=== PATIENT | female | born 1935 | race African-American/Black ===

== ENCOUNTER 2016-06-29 06:01 | Inpatient (IN) | payer MEDICARE, OTHER ==
[2016-06-26 14:39] LABS: BASOPHILS 0.2 %; BASOPHILS ABSOLUTE 0.01 10/3/uL (0.0-0.16); EOSINOPHILS 1.5 %; EOSINOPHILS ABSOLUTE 0.07 10/3/uL (0.0-0.53); HEMATOCRIT 29.8 % (36.0-48.0); HEMOGLOBIN 9.9 g/dL (12.0-16.0); IMMATURE GRANULOCYTES 1.7 %; IMMATURE GRANULOCYTES ABSOLUTE 0.08 10/3/uL (0.0-0.11); LYMPHOCYTES 28.7 %; LYMPHOCYTES ABSOLUTE 1.38 10/3/uL (0.67-4.30); MEAN CORPUS HGB CONC 33.2 g/dL (32.0-36.0); MEAN PLATELET VOLUME 9.8 fL (9.2-13.0); MONOCYTES 9.6 %; MONOCYTES ABSOLUTE 0.46 10/3/uL (0.21-1.20); NEUTROPHILS 58.3 %; NEUTROPHILS ABSOLUTE 2.81 10/3/uL (2.02-8.40); PLATELET COUNT 230 10/3/uL (150-400); RBC DISTRIBUTION WIDTH 17.4 % (12.0-16.0); RED CELL COUNT 3.54 10/6/uL (4.0-5.6); WHITE BLOOD CELLS 4.8 10/3/uL (4.5-10.5)
[2016-06-26 14:40] LABS: MANUAL DIFF NO %; MEAN CORPUSCULAR VOLUME 84.2 fL (80-100)
[2016-06-26 14:49] LABS: INTERNATIONAL NORMAL RATI 2.1 UNITS (-); PARTIAL THROMBO TIME 32.3 SEC (22.5-37.2); PROTIME (NOT ORD) 23.5 SEC (12.0-14.5)
[2016-06-26 14:52] LABS: CALCIUM, SERUM 8.6 MG/DL (8.5-10.4); CHLORIDE, SERUM 113 MMOL/L (96-112); CO2 (CARBON DIOXIDE) 25 MMOL/L (24-34); POTASSIUM, SERUM 3.8 MMOL/L (3.5-5.3); SODIUM, SERUM 147 MMOL/L (135-148)
[2016-06-26 14:53] LABS: BUN (BLOOD UREA NITROGEN) 15 MG/DL (6-23); CREATININE 1.75 MG/DL (0.55-1.02); GFR AFRICAN AMERICAN 32 ML/MIN (>=60); GFR NON AFRICAN AMERICAN 27 ML/MIN (>=60); GLUCOSE, SERUM 167 MG/DL (60-99)
--- NOTE | ~2016-06-29 | DS ---
Discharge Summary [facility] [address] [place]. 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 OPERATIVE PROCEDURE: Tracheostomy on 06/29/2016. 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 She has seen me in the office. I recommended tracheostomy tube years ago. She actually was referred to [facility] for a second opinion and they recommended tracheostomy tube; however, patient again has been functioning decently well until recent years and she actually even underwent a surgical procedure and was intubated and was successfully extubated following this. However, within the last few months, has had increasing dyspnea on exertion and difficulty catching her breath. The patient was felt to benefit from tracheostomy placement and was scheduled for such. HOSPITAL COURSE: The patient was admitted to the hospital following the uneventful surgical procedure which included microscopic direct laryngoscopy and tracheostomy tube placement on 06/29/2016. A #6 Shiley CFS tracheostomy tube was inserted at the time of surgery and the patient was taken to the intermediate care unit or the ICU step-down unit for further observation and airway monitoring. She spent 2 days in monitoring at this location, had uneventful stay with minimal secretions, and was transferred to the floor on Sunday evening. While on the floor, she again continued to have no problems. She was fairly weak and Physical Therapy consult was placed. Also consults were placed for home health care which would include nurses' visits and teaching. Physical therapy was suggested on an outpatient basis and this was ordered as well. On the morning of 07/03/2016, patient was having minimal secretions and was able to clear her own secretions with cough with suctioning. Her tracheostomy site appeared to be healing well. Stay sutures were not removed yet, but she was tolerating finger occlusion for speech purposes. A Passy-Justina valve had not been placed at the time of discharge. She was deemed stable for discharge and discharged to home. DISPOSITION: Home. DISCHARGE MEDICATIONS: Include resumption of all home medications with no additional medications at this point, orders for physical therapy and nursing instruction on tracheostomy care were placed and she was discharged to home. IKER/YAQUELIN Discharge Summary [facility] [id number] [place]. [address] NAME: BOOKER FRANKLIN : 39 STATUS : ADM IN [facility]#: [id number] AGE: 80 ADM/REG DATE : 06/29/16 MR#: [id number] REPORT SERV DATE: 07/04/16 DICTATED BY: RUSTY SINGLETON. DATE: 07/03/16 REPORT STATUS : Draft TRANSCRIBED BY: YAQUELIN DATE: 07/03/16 Rusty Singleton M.D. / [id number] CC: Rusty Singleton M.D.
--- NOTE | ~2016-06-29 | OP ---
Record Of Operation [facility] [address] [place]. [address] NAME: BOOKER FRANKLIN : 39 STATUS : ADM IN PAT#: [id number] AGE: 80 ADM/REG DATE : 06/29/16 MR#: [id number] REPORT SERV DATE: 06/29/16 DICTATED BY: RUSTY SINGLETON DATE: 06/29/16 REPORT STATUS : Draft TRANSCRIBED BY: MODL DATE: 06/29/16 DATE OF PROCEDURE: 06/29/2016 PREOPERATIVE DIAGNOSES: Bilateral vocal fold palsy, stridor, and upper airway obstruction. POSTOPERATIVE DIAGNOSES: Bilateral vocal fold palsy, stridor, and upper airway obstruction. OPERATIVE PROCEDURE PERFORMED: 1. Microscopic direct laryngoscopy. 2. Tracheostomy. INDICATIONS AND SIGNIFICANT HISTORY: The patient is a 80-year-old female who for over 10 years now has had bilateral true vocal fold palsy. She has done well and even undergone intubation previously and was able to be successfully extubated; however, over the last several months, she has been increasingly dyspneic with increasing stridor on exertion. She was then seen by myself multiple times as well as had been evaluated at [facility] for other procedures and tracheostomy was recommended. OPERATIVE PROCEDURE AND FINDINGS: After informed consent was obtained, the patient was brought to the operating room and placed on the operating table in supine position, at which point, general endotracheal anesthesia was induced by Anesthesia Service and the Dedo laryngoscope was inserted into the oral cavity through guarded alveolar ridge. Lateral pharyngeal wall, posterior pharyngeal wall, supraglottis, epiglottis, and glottis were all inspected and no lesions, masses, or obstructions were noted. Previous endoscopy in the office setting while awake demonstrated paramedian bilateral true vocal folds. Tracheostomy was then performed. The skin of the neck was prepped and draped in standard sterile fashion. A vertical incision was made in the midline of the neck and was carried down to the level of the trachea. There was heavy scarring of the surface of the trachea. An inferiorly based Shakila-type flap was created and sewn into place in the inferior aspect of the stoma using a #15 blade scalpel and 4-0 silk suture. Next, her oral endotracheal tube was withdrawn and a 6-0 Shiley cuffless non-fenestrated tracheostomy tube was inserted into the lumen of the trachea. The circuit was confirmed with return of tidal volume. The patient then had her tracheostomy tube secured at four points. The patient was turned back toward anesthesia, aroused from anesthesia, and taken to the postanesthesia care unit in satisfactory condition. COMPLICATIONS: None. ESTIMATED BLOOD LOSS: Less than 10 mL. IV FLUIDS: Per Anesthesia. DLCuca/YAQUELIN Record Of [address] [address] NAME: BOOKER FRANKLIN : 39 STATUS : ADM IN [facility]#: [id number] AGE: 80 ADM/REG DATE : 06/29/16 MR#: [id number] REPORT SERV DATE: 06/29/16 DICTATED BY: RUSTY SINGLETON DATE: 06/29/16 REPORT STATUS : Draft TRANSCRIBED BY: YAQUELIN DATE: 06/29/16 Rusty Singleton M.D. / [id number] CC: Yoon Meneses M.D.
[~2016-06-29 06:01] MED LIST: ALBUTEROL5 INH; ALLEGRA180 PO; AMARYL1 MG PO; AMITIZA24 PO; AVANDARYL1 TA3 PO; BREO ELLIPTA 21 EACH INH; C5 PO; CIP5 PO; COZAAR100 MG PO; DSS PO; DULERA 200 MCG/13 GM INH; ESTRACE VAG0.1 MG/GM V; FERROUS SULF325 M1 PO; HCTZ50B PO; IBUDONE1 TA1 OR; JANUVIA25 MG PO; JANUVIA50 PO; KAPIDEX30 MG PO; KDUR10 PO; KLOR-CON 1010 MEQ PO; LEVOTHYROXIN100 MCG PO; LIPITOR20 PO; MACRO50B PO; MCZ25 PO; MUCINEX600 MG PO; NEUR100 PO; NORCO1 TA1 PO; ONGLYZA2.5 MG PO; PRILO PO; PROAIR HFA INH; PROLOP100 PO; PROVENTSOL INH; ROCALTROL 0.0.25 MCG PO; ROCALTROL0.25 MCG PO; SINGULAIR1 PO; SYN1 PO; THERGRANM PO; VYTORIN 10/20 T1 TAB PO; WELLXL150 PO; X5 PO; ZOL50 PO; ZYRTEC ALLGY10 MG PO
[2016-06-29 06:47] LABS: INTERNATIONAL NORMAL RATI 1.4 UNITS (-)
[2016-06-29 06:50] LABS: PROTIME (NOT ORD) 17.2 SEC (12.0-14.5)
[2016-06-30 04:46] LABS: INTERNATIONAL NORMAL RATI 1.3 UNITS (-); PROTIME (NOT ORD) 16.5 SEC (12.0-14.5)
[2016-06-30 06:05] LABS: BUN (BLOOD UREA NITROGEN) 22 MG/DL (6-23); CALCIUM, SERUM 8.2 MG/DL (8.5-10.4); CHLORIDE, SERUM 111 MMOL/L (96-112); CO2 (CARBON DIOXIDE) 26 MMOL/L (24-34); CREATININE 1.47 MG/DL (0.55-1.02); GFR AFRICAN AMERICAN 39 ML/MIN (>=60); GFR NON AFRICAN AMERICAN 34 ML/MIN (>=60); GLUCOSE, SERUM 86 MG/DL (60-99); PHOSPHORUS, SERUM 3.3 MG/DL (2.5-4.5); SODIUM, SERUM 144 MMOL/L (135-148)
[2016-07-01 06:51] LABS: BUN (BLOOD UREA NITROGEN) 17 MG/DL (6-23); CALCIUM, SERUM 8.1 MG/DL (8.5-10.4); CHLORIDE, SERUM 108 MMOL/L (96-112); CO2 (CARBON DIOXIDE) 26 MMOL/L (24-34); CREATININE 1.31 MG/DL (0.55-1.02); GFR AFRICAN AMERICAN 45 ML/MIN (>=60); GFR NON AFRICAN AMERICAN 39 ML/MIN (>=60); GLUCOSE, SERUM 124 MG/DL (60-99); PHOSPHORUS, SERUM 2.7 MG/DL (2.5-4.5); POTASSIUM, SERUM 3.7 MMOL/L (3.5-5.3); SODIUM, SERUM 143 MMOL/L (135-148)
[2016-07-01 06:52] LABS: INTERNATIONAL NORMAL RATI 1.3 UNITS (-); PROTIME (NOT ORD) 15.9 SEC (12.0-14.5)
[2016-07-02 06:48] LABS: INTERNATIONAL NORMAL RATI 1.2 UNITS (-); PROTIME (NOT ORD) 15.4 SEC (12.0-14.5)
[2016-07-03 06:26] LABS: INTERNATIONAL NORMAL RATI 1.3 UNITS (-); PROTIME (NOT ORD) 15.8 SEC (12.0-14.5)
[2016-07-03 06:30] LABS: BUN (BLOOD UREA NITROGEN) 17 MG/DL (6-23); CALCIUM, SERUM 8.2 MG/DL (8.5-10.4); CHLORIDE, SERUM 111 MMOL/L (96-112); CO2 (CARBON DIOXIDE) 25 MMOL/L (24-34); CREATININE 1.34 MG/DL (0.55-1.02); GFR AFRICAN AMERICAN 44 ML/MIN (>=60); GFR NON AFRICAN AMERICAN 38 ML/MIN (>=60); GLUCOSE, SERUM 80 MG/DL (60-99); POTASSIUM, SERUM 3.9 MMOL/L (3.5-5.3); SODIUM, SERUM 144 MMOL/L (135-148)
[2016-07-04 07:05] LABS: INTERNATIONAL NORMAL RATI 1.4 UNITS (-); PROTIME (NOT ORD) 17.1 SEC (12.0-14.5)
[2016-07-05 09:54] LABS: INTERNATIONAL NORMAL RATI 1.4 UNITS (-); PROTIME (NOT ORD) 16.7 SEC (12.0-14.5)
[2016-07-06 06:34] LABS: INTERNATIONAL NORMAL RATI 1.3 UNITS (-); PROTIME (NOT ORD) 16.5 SEC (12.0-14.5)
[2016-10-11] MEDS ORDERED: LIPITOR20 PO (12:47)
[2016-10-11] MEDS ORDERED: SINGULAIR1 PO (12:47)
[2016-10-11] MEDS ORDERED: NEUR100 PO (12:49)
[2016-10-11] MEDS ORDERED: ZOL50 PO (12:49)
[2016-10-11] MEDS ORDERED: NORCO1 TAB PO (12:50)
[2016-10-11] MEDS ORDERED: ROCALTROL 0.0.25 MCG PO (12:51)
[2016-10-11] MEDS ORDERED: KAPIDEX30 MG PO (12:51)
[2016-10-11] MEDS ORDERED: VITAMIN B-121000 MC1 SL (12:51)
[2016-10-11] MEDS ORDERED: HYDROCHLOROT12.5 MG PO (12:52)
[2016-10-11] MEDS ORDERED: FERROUS SULF325 M1 PO (12:52)
[2016-10-11] MEDS ORDERED: COUMADIN7.5 MG PO (12:57)
[2016-10-11] MEDS ORDERED: C5 PO (12:57)
[2016-10-11] MEDS ORDERED: SYN1 PO (12:58)
[2016-10-11] MEDS ORDERED: VOLTAREN1 % TOP ×2 (12:58→12:59)
[2016-10-11] MEDS ORDERED: AMITIZA24 PO (13:00)
[2016-10-11] MEDS ORDERED: COZ50 PO (13:00)
[2016-10-11] MEDS ORDERED: REFRESH OPH (13:01)
[2016-10-11] MEDS ORDERED: JANUVIA25 MG PO (13:02)
[2016-10-11] MEDS ORDERED: BREO ELLIPTA 21 EACH INH (13:03)
[2016-10-11] MEDS ORDERED: ALLEGRA180 PO (13:03)
[2016-10-15] MEDS ORDERED: PROAIR HFA INH (14:51)
== END 2016-07-06 14:43 | DRG 4 ==
LOC: SDC 06:01 → IMCU 11:35 → 4SO 07-01 11:21
PROVIDERS: Otolaryngology
PROC: 0CJS8ZZ Inspection of Larynx, Via Natural or Artificial Opening Endoscopic (ICD-10-PCS; principal; 2016-06-29 07:30)
PROC: 0B110F4 Bypass Trachea to Cutaneous with Tracheostomy Device, Open Approach (ICD-10-PCS; principal; 2016-06-29 07:30)
DX: J98.8 Other specified respiratory disorders (principal); E11.22 Type 2 diabetes mellitus with diabetic chronic kidney disease; N18.3 Chronic kidney disease, stage 3 (moderate); R06.1 Stridor; J38.02 Paralysis of vocal cords and larynx, bilateral; G47.33 Obstructive sleep apnea (adult) (pediatric); E89.0 Postprocedural hypothyroidism; Z88.0 Allergy status to penicillin; Z88.8 Allergy status to other drugs, medicaments and biological substances; Z88.5 Allergy status to narcotic agent; Z88.3 Allergy status to other anti-infective agents; J45.909 Unspecified asthma, uncomplicated; I12.9 Hypertensive chronic kidney disease with stage 1 through stage 4 chronic kidney disease, or unspecified chronic kidney disease; R53.1 Weakness; K59.00 Constipation, unspecified; K21.9 Gastro-esophageal reflux disease without esophagitis
CPT/HCPCS: 80048; 82962; 83735; 84100; 85025; 85610; 85730; 87641; 93005; 94640; 97116-GP; 97161-GP; A9270-GY; C1729; G8978-CK-GP; G8979-CJ-GP; J0690; J1652; J2405; J2710

== ENCOUNTER 2016-08-28 15:10 | Emergency (ER) | payer MEDICARE, OTHER ==
[2016-08-28 15:07] LABS: BASOPHILS 0.2 %; BASOPHILS ABSOLUTE 0.01 10/3/uL (0.0-0.16); EOSINOPHILS 0.8 %; EOSINOPHILS ABSOLUTE 0.05 10/3/uL (0.0-0.53); HEMOGLOBIN 8.9 g/dL (12.0-16.0); IMMATURE GRANULOCYTES 0.5 %; IMMATURE GRANULOCYTES ABSOLUTE 0.03 10/3/uL (0.0-0.11); LYMPHOCYTES 25.8 %; LYMPHOCYTES ABSOLUTE 1.52 10/3/uL (0.67-4.30); MEAN CORPUSCULAR HEMOGLOB 26.5 pg (26.0-34.0); MEAN PLATELET VOLUME 9.5 fL (9.2-13.0); MONOCYTES 6.9 %; MONOCYTES ABSOLUTE 0.41 10/3/uL (0.21-1.20); NEUTROPHILS 65.8 %; NEUTROPHILS ABSOLUTE 3.88 10/3/uL (2.02-8.40); PLATELET COUNT 213 10/3/uL (150-400); RBC DISTRIBUTION WIDTH 18.5 % (12.0-16.0); RED CELL COUNT 3.36 10/6/uL (4.0-5.6); WHITE BLOOD CELLS 5.9 10/3/uL (4.5-10.5)
[2016-08-28 15:08] LABS: MEAN CORPUSCULAR VOLUME 80.4 fL (80-100)
[2016-08-28 15:09] LABS: ER CBC TAT 0 Hrs 03 Mins; MANUAL DIFF NO %
[2016-08-28 15:16] LABS: INTERNATIONAL NORMAL RATI 1.7 UNITS (-); PARTIAL THROMBO TIME 45.6 SEC (22.5-37.2)
[2016-08-28 15:19] LABS: PROTIME (NOT ORD) 19.9 SEC (12.0-14.5)
[2016-08-28 15:27] LABS: BUN (BLOOD UREA NITROGEN) 17 MG/DL (6-23); CALCIUM, SERUM 8.9 MG/DL (8.5-10.4); CHEST PAIN PROFILE TAT 0 Hrs 23 Mins; CHLORIDE, SERUM 113 MMOL/L (96-112); CO2 (CARBON DIOXIDE) 26 MMOL/L (24-34); CREATININE 1.58 MG/DL (0.55-1.02); GFR AFRICAN AMERICAN 36 ML/MIN (>=60); GFR NON AFRICAN AMERICAN 31 ML/MIN (>=60); GLUCOSE, SERUM 84 MG/DL (60-99); POTASSIUM, SERUM 3.9 MMOL/L (3.5-5.3); SODIUM, SERUM 146 MMOL/L (135-148); TROPONIN I <0.02 NG/ML (<0.05)
[2016-10-11] MEDS ORDERED: LIPITOR20 PO (12:47)
[2016-10-11] MEDS ORDERED: SINGULAIR1 PO (12:47)
[2016-10-11] MEDS ORDERED: NEUR100 PO (12:49)
[2016-10-11] MEDS ORDERED: ZOL50 PO (12:49)
[2016-10-11] MEDS ORDERED: NORCO1 TAB PO (12:50)
[2016-10-11] MEDS ORDERED: KAPIDEX30 MG PO (12:51)
[2016-10-11] MEDS ORDERED: VITAMIN B-121000 MC1 SL (12:51)
[2016-10-11] MEDS ORDERED: ROCALTROL 0.0.25 MCG PO (12:51)
[2016-10-11] MEDS ORDERED: HYDROCHLOROT12.5 MG PO (12:52)
[2016-10-11] MEDS ORDERED: FERROUS SULF325 M1 PO (12:52)
[2016-10-11] MEDS ORDERED: C5 PO (12:57)
[2016-10-11] MEDS ORDERED: COUMADIN7.5 MG PO (12:57)
[2016-10-11] MEDS ORDERED: VOLTAREN1 % TOP ×2 (12:58→12:59)
[2016-10-11] MEDS ORDERED: SYN1 PO (12:58)
[2016-10-11] MEDS ORDERED: COZ50 PO (13:00)
[2016-10-11] MEDS ORDERED: AMITIZA24 PO (13:00)
[2016-10-11] MEDS ORDERED: REFRESH OPH (13:01)
[2016-10-11] MEDS ORDERED: JANUVIA25 MG PO (13:02)
[2016-10-11] MEDS ORDERED: BREO ELLIPTA 21 EACH INH (13:03)
[2016-10-11] MEDS ORDERED: ALLEGRA180 PO (13:03)
[2016-10-15] MEDS ORDERED: PROAIR HFA INH (14:51)
== END 2016-08-28 17:02 | disposition home or self-care (01) ==
LOC: ER 15:10
PROVIDERS: Physician Assistant
DX: H10.9 Unspecified conjunctivitis (principal); R05 Cough; Z93.0 Tracheostomy status; I12.9 Hypertensive chronic kidney disease with stage 1 through stage 4 chronic kidney disease, or unspecified chronic kidney disease; N18.9 Chronic kidney disease, unspecified; E11.9 Type 2 diabetes mellitus without complications; Z87.01 Personal history of pneumonia (recurrent); Z88.0 Allergy status to penicillin; Z88.5 Allergy status to narcotic agent; Z79.899 Other long term (current) drug therapy; Z79.01 Long term (current) use of anticoagulants
CPT/HCPCS: 31720; 71020; 80048; 83735; 84484; 85025; 85610; 85730; 93005; 99283; A9270-GY